=== PATIENT | male | born 1945 | race Caucasian/White ===

== ENCOUNTER 2020-09-24 15:04 | Emergency (ER) | payer OTHER ==
[2020-09-24 15:51] LABS: Absolute Lymphocytes (CBC) 1.4 K/uL (0.7-4.9); Basophils % 0.2 % (0-1.3); Hematocrit 41.4 % (39.6-49.0); Lymphocytes % 18.1 % (15.3-44.8); MPV 8.6 fL (7.6-11.3); RBC Red Blood Cell Count 4.75 M/uL (4.33-5.43)
[2020-09-24 15:52] LABS: Protime INR 1.09
[2020-09-24 16:01] LABS: ALT/SGPT 25 U/L (12-78); AST/SGOT 13 U/L (15-37); Albumin 3.9 g/dL (3.4-5.0); Alkaline Phosphatase 57 U/L (45-117); BUN Blood Urea Nitrogen 24 mg/dL (7-18); Bicarbonate 28 mmol/L (21-32); Bilirubin Direct 0.2 mg/dL (0-0.2); Bilirubin Total 0.8 mg/dL (0.2-1.0); Glucose Level 128 mg/dL (74-106); Magnesium 2.2 mg/dL (1.8-2.4); NT PRO-BNP 134 pg/mL (<450); Potassium 3.4 mmol/L (3.5-5.1); Protein, Total 6.8 g/dL (6.4-8.2); Sodium Level 140 mmol/L (136-145); Troponin (Emerg Dept Use Only) < 0.02 ng/mL (0.0-0.045)
--- NOTE | 2020-09-24 16:02 | RAD REPORT ---
EXAM DESCRIPTION: CT - Head Brain Wo Cont - 09/24/2020 3:39 pm CLINICAL HISTORY: Dizziness;Syncope COMPARISON: <Comparisons> TECHNIQUE: Axial 5 mm thick images of the head were obtained without IV contrast. All CT scans are performed using dose optimization technique as appropriate and may include automated exposure control or mA/KV adjustment according to patient size. FINDINGS: No intracranial hemorrhage, mass, edema or shift of mid-line structures. No acute infarcti on changes seen. No cortical edema or sulcal effacement. Patient has atrophy and chronic ischemic scarlet nges are mild. Ventricles are in proportion to any volume loss. Arterial tree calcifications are pres ent. Mastoid air cells are clear. No acute paranasal sinus findings. No acute bony findings. IMPRESSION: Negative non-contrast CT head examination for acute finding.
--- NOTE | 2020-09-24 16:23 | RAD REPORT ---
EXAM DESCRIPTION: RAD - Chest Single View - 09/24/2020 3:30 pm CLINICAL HISTORY: COUGH COMPARISON: None TECHNIQUE: AP portable chest image was obtained 09/24/2020 3:30 pm . FINDINGS: Lungs are clear. Heart and vasculature are normal. No measurable pleural effusion and no p neumothorax. No acute bony abnormality seen. No acute aortic finding. Sternotomy fusion hardware in p lace. IMPRESSION: No acute cardiopulmonary process.
--- NOTE | 2020-09-24 16:50 | EDPHYS ---
Physician Documentation [facility] Name: Tolu Birmingham Age: 75 yrs Sex: Male : 1945 Arrival Date: 09/24/2020 Time: 15:13 Bed 24 Private MD: ED Physician Levi Carballo HPI: 09/24 16:08 This 75 yrs old Male presents to ER via EMS with complaints of Syncope. scarlet 16:08 The patient has experienced near-syncope, almost passed out. Onset: The scarlet symptoms/episode began/occurred just prior to arrival. Duration: This was a single episode, that lasted 30 second(s). Context: the episode(s) was witnessed, by family. Associated injury: The patient did not suffer any apparent associated injury. Associated signs and symptoms: The patient has no apparent associated signs or symptoms. Current symptoms: Currently, the patient is not experiencing any symptoms. The patient has not experienced similar symptoms in the past. Historical: - Allergies: 15:19 Morphine; ph - PSHx: 15:19 CABG; ph - Immunization history:: Client reports receiving the 2nd dose of the Covid vaccine, Flu vaccine is up to date. - Social history:: Smoking status: Patient denies any tobacco usage or history of. Patient uses alcohol, occasionally. - Family history:: not pertinent. ROS: 16:08 Constitutional: Negative for fever, chills, and weight loss, Eyes: Negative for injury, scarlet pain, redness, and discharge, ENT: Negative for injury, pain, and discharge, Neck: Negative for injury, pain, and swelling, Cardiovascular: Negative for chest pain, palpitations, and edema, Respiratory: Negative for shortness of breath, cough, wheezing, and pleuritic chest pain, Abdomen/GI: Negative for abdominal pain, nausea, vomiting, diarrhea, and constipation, Back: Negative for injury and pain, : Negative for injury, bleeding, discharge, and swelling, MS/Extremity: Negative for injury and deformity, Skin: Negative for injury, rash, and discoloration, Psych: Negative for depression, anxiety, suicide ideation, homicidal ideation, and hallucinations, Allergy/Immunology: Negative for hives, rash, and allergies, Endocrine: Negative for neck swelling, polydipsia, polyuria, polyphagia, and marked weight changes, Hematologic/Lymphatic: Negative for swollen nodes, abnormal bleeding, and unusual bruising. 16:08 Neuro: Positive for syncope, near syncope. Exam: 16:08 Constitutional: This is a well developed, well nourished patient who is awake, alert, scarlet and in no acute distress. Head/Face: Normocephalic, atraumatic. Eyes: Pupils equal round and reactive to light, extra-ocular motions intact. Lids and lashes normal. Conjunctiva and sclera are non-icteric and not injected. Cornea within normal limits. Periorbital areas with no swelling, redness, or edema. ENT: Nares patent. No nasal discharge, no septal abnormalities noted. Tympanic membranes are normal and external auditory canals are clear. Oropharynx with no redness, swelling, or masses, exudates, or evidence of obstruction, uvula midline. Mucous membranes moist. Neck: Trachea midline, no thyromegaly or masses palpated, and no cervical lymphadenopathy. Supple, full range of motion without nuchal rigidity, or vertebral point tenderness. No Meningismus. Chest/axilla: Normal chest wall appearance and motion. Nontender with no deformity. No lesions are appreciated. Cardiovascular: Regular rate and rhythm with a normal S1 and S2. No gallops, murmurs, or rubs. Normal PMI, no JVD. No pulse deficits. Respiratory: Lungs have equal breath sounds bilaterally, clear to auscultation and percussion. No rales, rhonchi or wheezes noted. No increased work of breathing, no retractions or nasal flaring. Abdomen/GI: Soft, non-tender, with normal bowel sounds. No distension or tympany. No guarding or rebound. No evidence of tenderness throughout. Back: No spinal tenderness. No costovertebral tenderness. Full range of motion. Male : Normal genitalia with no discharge or lesions. Skin: Warm, dry with normal turgor. Normal color with no rashes, no lesions, and no evidence of cellulitis. MS/ Extremity: Pulses equal, no cyanosis. Neurovascular intact. Full, normal range of motion. Neuro: Awake and alert, GCS 15, oriented to person, place, time, and situation. Cranial nerves II-XII grossly intact. Motor strength 5/5 in all extremities. Sensory grossly intact. Cerebellar exam normal. Normal gait. Psych: Awake, alert, with orientation to person, place and time. Behavior, mood, and affect are within normal limits. 16:08 Musculoskeletal/extremity: DVT Exam: No signs of deep vein thrombosis. no pain, no swelling, no tenderness, negative Homans' sign noted on exam, no appreciated bluish discoloration, no erythema, no increased warmth. 16:22 ECG was reviewed by the Attending Physician. scarlet Vital Signs: 15:13 BP 123 / 60; Pulse 69; Resp 18; Temp 97.0; Pulse Ox 96% on R/A; Weight 81.65 kg; Height ph 5 ft. 8 in. (172.72 cm); 16:28 Pulse 77; Resp 18; Pulse Ox 97% on R/A; ph 17:27 BP 83 / 62 LA Supine (auto/reg); Pulse 84; Pulse Ox 100% on R/A; jp3 17:29 BP 92 / 80 LA Sitting (auto/reg); Pulse 82; Pulse Ox 100% on R/A; jp3 17:33 BP 125 / 62 LA Standing (auto/reg); Pulse 82; Pulse Ox 100% on R/A; jp3 15:13 Body Mass Index 27.37 (81.65 kg, 172.72 cm) ph NIH Stroke Scale Scores: 16:53 NIHSS Score: 0 scarlet MDM: 15:15 Patient medically screened. scarlet 16:12 Differential Diagnosis: aortic aneurysm, cardiac arrhythmia, GI bleed, idiopathic scarlet syncope, seizure, transient ischemic attack, vasovagal episode, . Data reviewed: vital signs, nurses notes, lab test result(s), EKG. Data interpreted: monitoring and evaluation advisor: rate is 69 beats/min, rhythm is regular, Pulse oximetry: on room air is 96 %. Test interpretation: by ED physician or midlevel provider: ECG, plain radiologic studies. Counseling: I had a detailed discussion with the patient and/or guardian regarding: the historical points, exam findings, and any diagnostic results supporting the discharge/admit diagnosis, lab results, radiology results, the need for outpatient follow up, for definitive care, a batch records clerk, an supervising appraiser, a neurologist. 09/24 15:17 Order name: Basic Metabolic Panel [facility] 09/24 15:17 Order name: CBC with Diff; Complete Time: 16:06 [facility] 09/24 15:17 Order name: LFT's; Complete Time: 16:06 [facility] 09/24 15:17 Order name: Magnesium; Complete Time: 16:06 scarlet 09/24 15:17 Order name: NT PRO-BNP; Complete Time: 16:06 scarlet 09/24 15:17 Order name: PT-INR; Complete Time: 16:06 scarlet 09/24 15:17 Order name: Troponin (emerg Dept Use Only); Complete Time: 16:06 scarlet 09/24 15:17 Order name: XRAY Chest (1 view); Complete Time: 16:48 scarlet 09/24 15:17 Order name: CT Head Brain wo Cont; Complete Time: 16:06 scarlet 09/24 15:17 Order name: Basic Metabolic Panel; Complete Time: 16:06 [facility]MO 09/24 15:58 Order name: Alcohol Level; Complete Time: 16:48 scarlet 09/24 15:17 Order name: EKG; Complete Time: 15:18 scarlet 09/24 15:17 Order name: EKG - Nurse/Tech; Complete Time: 16:24 [facility] 09/24 15:17 Order name: IV Saline Lock; Complete Time: 15:51 [facility] 09/24 15:17 Order name: Labs collected and sent; Complete Time: 15:51 [facility] 09/24 15:17 Order name: O2 Per Protocol; Complete Time: 15:26 scarlet 09/24 15:17 Order name: O2 Sat Monitoring; Complete Time: 15:26 [facility] 09/24 15:58 Order name: PO challenge; Complete Time: 16:48 [facility] 09/24 16:49 Order name: Orthostatics; Complete Time: 17:46 scarlet EC:22 Rate is 64 beats/min. Rhythm is regular. QRS [place] is Normal. [place] interval is normal. QRS scarlet interval is normal. QT interval is prolonged at 470 msec. No Q waves. T waves are Normal. No ST changes noted. Clinical impression: NSR w/ Non-specific ST/T Changes and No evidence of ischemia. Interpreted by me. Reviewed by me. Administered Medications: 16:00 Drug: NS 0.9% 1000 ml Route: IV; Rate: 125 ml/hr; Site: left forearm; ph 18:00 Follow up: Response: No adverse reaction; IV Status: Completed infusion ph 16:48 Drug: NS 0.9% 500 ml Route: IV; Rate: bolus; Site: left forearm; ph 18:01 Follow up: Response: No adverse reaction; IV Status: Completed infusion; IV Intake: ph 500ml 16:48 Drug: Potassium Effervescent Tablet 25 mEq Route: PO; ph 18:01 Follow up: Response: No adverse reaction ph 17:30 Drug: foLIC Acid 1 mg Route: IVPB; Site: left forearm; ph 18:01 Follow up: Response: No adverse reaction; IV Status: Completed infusion ph 17:30 Drug: Thiamine 100 mg Route: IV; Rate: per protocol; Site: left forearm; ph 18:01 Follow up: Response: No adverse reaction; IV Status: Completed infusion ph 17:30 Drug: Aspirin 162 mg Route: PO; ph 18:01 Follow up: Response: No adverse reaction ph Disposition: 09/24/20 16:50 Discharged to Home. Impression: Syncope and collapse - near, Volume depletion, Hypokalemia. - Condition is Stable. - Discharge Instructions: Potassium Content of Foods, Near-Syncope, Syncope, Weakness, Near-Syncope, Egby-dj-Habd, Syncope, Powf-aj-Lway, Weakness, Yuao-ow-Bkta, Hypokalemia, Vasovagal Syncope, Adult. - Medication Reconciliation Form, Thank You Letter, Antibiotic Education, Prescription Opioid Use form. - Follow up: Private Physician; When: 2 - 3 days; Reason: Recheck today's complaints, Continuance of care, Re-evaluation by your physician. - Problem is new. - Symptoms have improved. NIH Stroke Scale - NIH Stroke Score Date: 09/24/2020 Time: 16:53 Total Score = 0 1a. Level of Consciousness (LOC) - 0(Alert) 1b. Level of Consciousness (LOC) (Year \T\ Age) - 0(Both) 1c. LOC Commands (Open \T\ Closes Eyes/Data Management Consultant) - 0(Both) 2. Best Gaze (Lateral Gaze Paresis) - 0(Normal) 3. Visual Field Loss - 0(No visual loss) 4. Facial Palsy - 0(Normal) 5a. Left Arm: Motor (10-second hold) - 0(No drift) 5b. Right Arm: Motor (10-second hold) - 0(No drift) 6a. Left Leg: Motor (5-second hold - always test supine) - 0(No drift) 6b. Right Leg: Motor (5-second hold - always test supine) - 0(No drift) 7. Limb Ataxia (finger/nose \T\ heel/lynch - test with eyes open) - 0(Absent) 8. Sensory Loss (pinprick arms/legs/face) - 0(Normal) 9. Best Language: Aphasia (description/naming/reading) - 0(No aphasia) 10. Dysarthria (speech clarity - read or repeat words) - 0(Normal) 11. Extinction and Inattention (visual/tactile/auditory/spatial/personal) - 0(No abnormality) Initials: [facility] Signatures: Dispatcher [employer] EDLevi Hardwick MD MD cha Hall, Patricia RN RN ph Corrections: (The following items were deleted from the chart) 16:51 16:50 09/24/2020 16:50 Discharged to Home. Impression: Syncope and collapse - scarlet near. Condition is Stable. Discharge Instructions: Near-Syncope, Syncope, Weakness, Near-Syncope, Gwiq-mu-Wfue, Syncope, Vkkx-dk-Vxhk, Weakness, Cgvj-yh-Zvde, Vasovagal Syncope, Adult. Forms are Medication Reconciliation Form, Thank You Letter, Antibiotic Education, Prescription Opioid Use. Follow up: Private Physician; When: 2 - 3 days; Reason: Recheck today's complaints, Continuance of care, Re-evaluation by your physician. Problem is new. Symptoms have improved. [facility] 18:06 16:51 09/24/2020 16:50 Discharged to Home. Impression: Syncope and collapse - ph near; Volume depletion; Hypokalemia. Condition is Stable. Discharge Instructions: Near-Syncope, Syncope, Weakness, Near-Syncope, Ycfh-uf-Lbpn, Syncope, Mceg-wa-Yfgu, Weakness, Cdhu-bs-Bmsl, Vasovagal Syncope, Adult. Forms are Medication Reconciliation Form, Thank You Letter, Antibiotic Education, Prescription Opioid Use. Follow up: Private Physician; When: 2 - 3 days; Reason: Recheck today's complaints, Continuance of care, Re-evaluation by your physician. Problem is new. Symptoms have improved. scarlet
--- NOTE | 2020-09-24 16:50 | ER ---
Nurse's Notes [facility] Name: Tolu Birmingham Age: 75 yrs Sex: Male : 1945 Arrival Date: 09/24/2020 Time: 15:13 Bed 24 Private MD: Diagnosis: Syncope and collapse-near;Volume depletion;Hypokalemia Presentation: 09/24 15:13 Chief complaint: EMS states: Pt in from out of town visiting friends, had a witnessed ph syncopal episode, upon EMS arrival pt was awake but lethargic, A\T\O x 0, initial BP 80/40, Approx 400 mL NS given and systolic improved to 110, pt A\T\O x 4 upon arrival to ED, denies recent illness or chest pain, hx of CABG, BGL 125. Coronavirus screen: Client denies travel out of the [place] in the last 14 days. At this time, the client does not indicate any symptoms associated with coronavirus-19. Ebola Screen: No symptoms or risks identified at this time. Initial Sepsis Screen: Does the patient meet any 2 criteria? No. Patient's initial sepsis screen is negative. Does the patient have a suspected source of infection? No. Patient's initial sepsis screen is negative. Risk Assessment: Do you want to hurt yourself or someone else? Patient reports no desire to harm self or others. Onset of symptoms was September 24, 2020. 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 - Social history:: Smoking status: Patient denies any tobacco usage or history of. Patient uses alcohol, occasionally. - Family history:: not pertinent. Screenin:19 Abuse screen: Denies threats or abuse. Denies injuries from another. Nutritional ph screening: No deficits noted. Tuberculosis screening: No symptoms or risk factors identified. Fall Risk None identified. Assessment: 15:30 General: Appears in no apparent distress. comfortable, well groomed, Behavior is calm, ph cooperative, appropriate for age, Denies fever, feeling ill. Pain: Denies pain. Neuro: Level of Consciousness is awake, alert, obeys commands, Oriented to person, place, time, situation. Neuro: Reports a syncopal episode. Cardiovascular: Denies chest pain, lightheadedness, nausea, palpitations, shortness of breath, Capillary refill < 3 seconds in bilateral fingers Patient's skin is warm and dry. Rhythm is regular. Respiratory: Airway is patent Respiratory effort is even, unlabored. GI: Patient currently denies abdominal pain, nausea, vomiting. Derm: Skin is intact, Skin is pink, warm \T\ dry. Musculoskeletal: Circulation, motion, and sensation intact. Range of motion: intact in all extremities. Vital Signs: 15:13 BP 123 / 60; Pulse 69; Resp 18; Temp 97.0; Pulse Ox 96% on R/A; Weight 81.65 kg; Height ph 5 ft. 8 in. (172.72 cm); 16:28 Pulse 77; Resp 18; Pulse Ox 97% on R/A; ph 17:27 BP 83 / 62 LA Supine (auto/reg); Pulse 84; Pulse Ox 100% on R/A; jp3 17:29 BP 92 / 80 LA Sitting (auto/reg); Pulse 82; Pulse Ox 100% on R/A; jp3 17:33 BP 125 / 62 LA Standing (auto/reg); Pulse 82; Pulse Ox 100% on R/A; jp3 15:13 Body Mass Index 27.37 (81.65 kg, 172.72 cm) ph NIH Stroke Scale Scores: 16:53 NIHSS Score: 0 [facility] ED Course: 15:13 Patient arrived in ED. ph 15:15 Levi Carballo MD is Attending Physician. scarlet 15:18 Triage completed. ph 15:19 Arm band placed on Patient placed in an exam room, on a stretcher. ph 15:20 Patient has correct armband on for positive identification. Placed in gown. Bed in low ph position. Call light in reach. Side rails up X2. personnel monitor on. Pulse ox on. NIBP on. Door closed. Noise minimized. Warm blanket given. 15:26 Lulu Castillo, GELY is Primary Nurse. ph 15:30 XRAY Chest (1 view) In Process Unspecified. EDMS 15:39 CT Head Brain wo Cont In Process Unspecified. EDMS 15:51 Initial lab(s) drawn, by me, sent to lab. X-ray(s) taken. Maintain EMS IV. Dressing jp3 intact. Good blood return noted. Site clean \T\ dry. Gauge \T\ site: 18-gauge Left Wrist. Patient maintains SpO2 saturation greater than 95% on room air. 18:02 No provider procedures requiring assistance completed. IV discontinued, intact, ph bleeding controlled, No redness/swelling at site. Pressure dressing applied. Administered Medications: 16:00 Drug: NS 0.9% 1000 ml Route: IV; Rate: 125 ml/hr; Site: left forearm; ph 18:00 Follow up: Response: No adverse reaction; IV Status: Completed infusion ph 16:48 Drug: NS 0.9% 500 ml Route: IV; Rate: bolus; Site: left forearm; ph 18:01 Follow up: Response: No adverse reaction; IV Status: Completed infusion; IV Intake: ph 500ml 16:48 Drug: Potassium Effervescent Tablet 25 mEq Route: PO; ph 18:01 Follow up: Response: No adverse reaction ph 17:30 Drug: foLIC Acid 1 mg Route: IVPB; Site: left forearm; ph 18:01 Follow up: Response: No adverse reaction; IV Status: Completed infusion ph 17:30 Drug: Thiamine 100 mg Route: IV; Rate: per protocol; Site: left forearm; ph 18:01 Follow up: Response: No adverse reaction; IV Status: Completed infusion ph 17:30 Drug: Aspirin 162 mg Route: PO; ph 18:01 Follow up: Response: No adverse reaction ph Intake: 18:01 IV: 500ml; Total: 500ml. ph Outcome: 16:50 Discharge ordered by . scarlet 18:05 Discharged to home ambulatory. ph 18:05 Condition: good 18:05 Discharge instructions given to patient, Instructed on discharge instructions, follow up and referral plans. Demonstrated understanding of instructions, follow-up care. 18:06 Patient left the ED. ph NIH Stroke Scale - NIH Stroke Score Date: 09/24/2020 Time: 16:53 Total Score = 0 1a. Level of Consciousness (LOC) - 0(Alert) 1b. Level of Consciousness (LOC) (Year \T\ Age) - 0(Both) 1c. LOC Commands (Open \T\ Closes Eyes/Legal Administrative Secretary) - 0(Both) 2. Best Gaze (Lateral Gaze Paresis) - 0(Normal) 3. Visual Field Loss - 0(No visual loss) 4. Facial Palsy - 0(Normal) 5a. Left Arm: Motor (10-second hold) - 0(No drift) 5b. Right Arm: Motor (10-second hold) - 0(No drift) 6a. Left Leg: Motor (5-second hold - always test supine) - 0(No drift) 6b. Right Leg: Motor (5-second hold - always test supine) - 0(No drift) 7. Limb Ataxia (finger/nose \T\ heel/lynch - test with eyes open) - 0(Absent) 8. Sensory Loss (pinprick arms/legs/face) - 0(Normal) 9. Best Language: Aphasia (description/naming/reading) - 0(No aphasia) 10. Dysarthria (speech clarity - read or repeat words) - 0(Normal) 11. Extinction and Inattention (visual/tactile/auditory/spatial/personal) - 0(No abnormality) Initials: scarlet Signatures: Dispatcher [employer] EDLevi Hardwick MD MD cha Hall, Patricia, RN RN ph Papo Tinajero jp3 Corrections: (The following items were deleted from the chart) 18:02 18:02 Neuro: Reports ph ph
[2020-09-24] MEDS ORDERED: POTASSIUM 25 MEQ EFFERV TAB ONE (16:58)
[2020-09-24] MEDS ORDERED: NA CHLORIDE 0.9% 500 ML ONE (16:58)
[2020-09-24] MEDS ORDERED: THIAMINE 200 MG/2 ML INJ ONE (17:40)
[2020-09-24] MEDS ORDERED: ASPIRIN 81 MG CHEWABLE TABLET ONE (17:41)
[2020-09-24] MEDS ORDERED: FOLIC ACID 5 MG/ML VIAL ONE (17:42)
[2020-09-25 14:20] VITALS: TEMP 97
[2020-09-25 14:32] VITALS: O2SAT 100
[2020-09-25 14:34] VITALS: BP 125/62
== END 2020-09-24 18:06 | disposition home or self-care (01) ==
LOC: ER 15:04
DX: E86.9 Volume depletion, unspecified (principal); E87.6 Hypokalemia; Z88.5 Allergy status to narcotic agent; Z95.1 Presence of aortocoronary bypass graft
CPT/HCPCS: 93005; 85025; 80048; 36415; 80320; 83735; 85610; 80076; 84484; 83880; 70450; 71045; J3411; J7040; 96361; 96365; 96368; 99285

== ENCOUNTER 2021-05-30 18:39 | Observation (INO) | payer OTHER ==
--- OUTSIDE RECORDS SUMMARY | 2021-05-30 19:17 | XMS REPORT | Continuity of Care Document ---
:1945 Author Organization [facility] t Address [address] [place] [address] Care Team Providers Name Role Phone DARLINE BRASHER Attending Clinician Unavailable System MD, Not In Attending Clinician Unavailable Problems This patient has no known problems. Allergies, Adverse Reactions, Alerts This patient has no known allergies or adverse reactions. Social History Social Habit Start Date Stop Date Quantity Comments Source Sex Assigned [birth year] [facility] 00:00:00 00:00:00 Smoking Status Start Date Stop Date Source Tobacco smoking consumption unknown [facility] Medications This patient has no known medications. Procedures This patient has no known procedures. Encounters Start End Encounter Admission Attending Care Care Encounter Source Date/Time Date/Time Type Type Clinicians Facility Department ID 2020-11-20 Outpatient PATITO BRASHER [facility] [id number] [place] 01:04:35 Health 2020-10-21 2020-10-21 EXT [facility] OP System, EXT [facility] [id number] [place] 00:00:00 00:00:00 Provider LOCATION [id number] Health Not In [id number] 2020-10-20 2020-10-20 Inpatient U [facility] [address] [facility] 14:58:00 05:54:00 Results This patient has no known results.
[2021-05-30 19:20] LABS: Basophils % 0.3 % (0-1.3); Hematocrit 43.5 % (39.6-49.0); Lymphocytes % 39.9 % (15.3-44.8); RBC Red Blood Cell Count 5.04 M/uL (4.33-5.43)
[2021-05-30 19:27] LABS: Protime INR 1.07
[2021-05-30 19:41] LABS: ALT/SGPT 31 U/L (12-78); AST/SGOT 20 U/L (15-37); Albumin 3.7 g/dL (3.4-5.0); Alkaline Phosphatase 61 U/L (45-117); BUN Blood Urea Nitrogen 26 mg/dL (7-18); Bicarbonate 27 mmol/L (21-32); Bilirubin Direct < 0.1 mg/dL (0-0.2); Bilirubin Total 0.4 mg/dL (0.2-1.0); Glucose Level 122 mg/dL (74-106); Magnesium 2.3 mg/dL (1.8-2.4); NT PRO-BNP 87 pg/mL (<450); Potassium 3.4 mmol/L (3.5-5.1); Protein, Total 6.7 g/dL (6.4-8.2); Sodium Level 142 mmol/L (136-145); Troponin (Emerg Dept Use Only) < 0.02 ng/mL (0.0-0.045)
--- NOTE | 2021-05-30 19:55 | RAD REPORT ---
EXAM DESCRIPTION: RAD - Chest Single View - 05/30/2021 7:47 pm CLINICAL HISTORY: CHEST PAIN COMPARISON: September 24 TECHNIQUE: AP portable chest image was obtained 05/30/2021 7:47 pm . FINDINGS: Lungs are clear. Interstitial pattern matches comparison. Heart and vasculature are normal . Postsurgical changes in sternum. Since prior study there has fusion at the cervicothoracic junction No measurable pleural effusion and no pneumothorax. No acute bony abnormality seen. No acute aortic findings suspected. IMPRESSION: No acute cardiopulmonary process.
[2021-05-30] MEDS ORDERED: ONDANSETRON 4 MG/2 ML VIAL ONE (21:00)
--- NOTE | 2021-05-30 21:19 | RAD REPORT ---
EXAM DESCRIPTION: CT - [id number] - 05/30/2021 8:50 pm CLINICAL HISTORY: fall COMPARISON: No comparisons TECHNIQUE: Axial 5 mm thick images of the head were obtained. Axial 2 mm thick images of the cervic al spine were obtained with sagittal and coronal reconstruction images generated and reviewed. All CT scans are performed using dose optimization technique as appropriate and may include automated exposure control or mA/KV adjustment according to patient size. FINDINGS: No intracranial hemorrhage, mass, edema or acute intracranial finding. No suspicion for ac kaci infarction. No extra-axial fluid collections. No cortical edema or sulcal effacement. Mild atroph y and mild chronic ischemic changes present. Ventricles are in proportion Mastoid air cells and paran ddiier sinuses are clear. No globe or orbit abnormality seen. Very extensive cervical spine fusion changes are present involving the vertebral bodies of C3 -C6. Po sterior fusion hardware is present from C2-T2. No fracture of the fusion hardware. No metallic hardwa re encroachment into the central canal. An acute fracture is not identified. C2-3 disc space is prese rved. No fracture or acute bony abnormality. Central canal detail is fully obscured due to metal spr ay artifact No paraspinal mass or hematoma. IMPRESSION: Negative CT head examination for acute or significant finding. Patient has mild atrophy and chronic ischemic change. Extensive cervical fusion changes spanning C3-T2. No acute findings identified. Central canal is ful ly obscured due to the fusion hardware.
--- NOTE | 2021-05-30 21:21 | RAD REPORT ---
EXAM DESCRIPTION: CT - Chest For Pe Angio - 05/30/2021 8:50 pm CLINICAL HISTORY: syncope COMPARISON: Chest Single View dated 05/30/2021 TECHNIQUE: Dynamically enhanced 3 mm thick images of the chest were obtained during administration o f approximately 150mL Isovue 370 IV contrast. Coronal and oblique MIP reconstruction images were gene rated and reviewed. Exam utilizes a protocol to evaluate the pulmonary arterial tree. All CT scans are performed using dose optimization technique as appropriate and may include automated exposure control or mA/KV adjustment according to patient size. FINDINGS: No pulmonary emboli are identified. The aorta as imaged shows no acute or suspicious finding. No pericardial thickening or effusion. No infiltrate or mass in the lung parenchyma. No pleural effusion or pleural thickening. No mediastinal or hilar suspicious masses. No chest wall masses or abnormal axillary lymphadenopathy. No acute bone finding. Upper thoracic fusion changes are present with sternotomy hardware in place. IMPRESSION: No pulmonary emboli identified. No other significant or suspicious findings.
--- NOTE | 2021-05-30 22:04 | EDPHYS ---
Physician Documentation [facility] Name: Tolu Birmingham Age: 75 yrs Sex: Male : 1945 Arrival Date: 05/30/2021 Time: 18:39 Bed 8 Private MD: ED Physician Levi Carballo HPI: 05/30 18:58 This 75 yrs old Male presents to ER via EMS with complaints of Syncope, Blood Pressure jmm Problem. 18:58 The patient has experienced syncope. Onset: The symptoms/episode began/occurred jmm acutely, just prior to arrival. Associated injury: The patient did not suffer any apparent associated injury. The patient has experienced a previous episode. This is a 75-year-old male with history of coronary artery disease, proprioceptive disorder, vertigo that presents emerged department with an episode of syncope or near syncope that developed after the patient was at a friend's house. While standing the states that he had a blank stare patient does not recall this. Patient also had an episode of shortness of breath which occurred upon initial arrival into the ED. Patient denies chest pain. Historical: - Allergies: 18:59 Morphine; iw - Home Meds: 18:59 gabapentin oral [Active]; Meclizine Oral [Active]; pravastatin oral [Active]; aspirin iw 81 mg Oral TbEC 1 tab once daily [Active]; - PMHx: 22:34 vertigo; df1 - PSHx: 18:59 CABG; iw 22:34 knee replacement left; neck surgeries x 3; df1 - Immunization history:: Client reports receiving the 2nd dose of the Covid vaccine. - Social history:: Smoking status: Patient denies any tobacco usage or history of. Patient uses alcohol, only on a social basis. ROS: 18:58 Constitutional: Negative for fever, chills, and weight loss, Cardiovascular: Negative jmm for chest pain, palpitations, and edema. 18:58 Respiratory: Positive for shortness of breath. 18:58 Neuro: Positive for syncope. 18:58 All other systems are negative. Exam: 18:58 Constitutional: This is a well developed, well nourished patient who is awake, alert, jmm and in no acute distress. Head/Face: atraumatic. Eyes: EOMI, no conjunctival erythema appreciated ENT: Moist Mucus Membranes Neck: Trachea midline, Supple Chest/axilla: Normal chest wall appearance and motion. Cardiovascular: Regular rate and rhythm. No edema appreciated Respiratory: Normal respirations, no respiratory distress appreciated Abdomen/GI: Non distended, soft Back: Normal ROM Skin: General appearance color normal MS/ Extremity: Moves all extremities, no obvious deformities appreciated, no edema noted to the lower extremities Neuro: Awake and alert, normal gait Psych: Behavior is normal, Mood is normal, Patient is cooperative and pleasant Vital Signs: 18:58 BP 118 / 60; Pulse 96; Resp 18 S; Temp 97.5; Pulse Ox 92% on R/A; Weight 81.65 kg; iw Height 5 ft. 7 in. (170.18 cm); 20:00 BP 140 / 78; Pulse 87; Resp 18; Pulse Ox 94% on 5 lpm NC; Pain 0/10; df1 20:30 BP 132 / 75; Pulse 85; Resp 18; Pulse Ox 98% 5 lpm ; Pain 0/10; df1 21:07 BP 136 / 84; Pulse 88; Resp 18; Pulse Ox 100% on 3 lpm NC; Pain 0/10; df1 22:00 BP 125 / 70; Pulse 90; Resp 18; Pulse Ox 100% on 2 lpm NC; Pain 0/10; df1 18:58 Body Mass Index 28.19 (81.65 kg, 170.18 cm) iw MDM: 19:16 Patient medically screened. scarlet 22:02 Data reviewed: vital signs, nurses notes. Counseling: I had a detailed discussion with catarino the patient and/or guardian regarding: the historical points, exam findings, and any diagnostic results supporting the discharge/admit diagnosis, lab results, radiology results, the need for further work-up and treatment in the hospital. ED course: I discussed the patient with Al Tirado whom accepted the patient to Dr. Adonis zavala. 05/30 18:58 Order name: Basic Metabolic Panel 05/30 18:58 Order name: CBC with Diff 05/30 18:58 Order name: LFT's; Complete Time: 19:46 05/30 18:58 Order name: Magnesium; Complete Time: 19:46 05/30 18:58 Order name: NT PRO-BNP; Complete Time: 19:46 05/30 18:58 Order name: PT-INR; Complete Time: 19:35 05/30 18:58 Order name: Troponin (emerg Dept Use Only); Complete Time: 19:46 05/30 18:58 Order name: XRAY Chest (1 view); Complete Time: 20:02 05/30 18:58 Order name: EKG; Complete Time: 18:59 05/30 18:59 Order name: Basic Metabolic Panel; Complete Time: 19:46 [facility] 05/30 18:59 Order name: CBC with Automated Diff; Complete Time: 19:35 [facility] 05/30 19:26 Order name: CT Head C Spine; Complete Time: 21:20 [facility] 05/30 19:26 Order name: CT Chest For PE Angio; Complete Time: 21:23 [facility] 05/30 20:03 Order name: SARS-COV-2 RT PCR (Document "Date of Onset" if Symptomatic); Complete Time: [facility] 21:20 05/30 18:58 Order name: Cardiac monitoring; Complete Time: 18:58 05/30 18:58 Order name: EKG - Nurse/Tech; Complete Time: 18:58 05/30 18:58 Order name: IV Saline Lock; Complete Time: 19:11 05/30 18:58 Order name: Labs collected and sent; Complete Time: 19:11 05/30 18:58 Order name: O2 Per Protocol; Complete Time: 18:59 05/30 18:58 Order name: O2 Sat Monitoring; Complete Time: 18:59 05/30 22:09 Order name: CONS Physician Consult EDTX Administered Medications: No medications were administered Disposition: 05/31 07:20 Co-signature as Attending Physician, Levi Carballo MD I agree with the assessment and scarlet plan of care. Disposition Summary: 05/30/21 22:04 Hospitalization Ordered Hospitalization Status: Observation [facility] Provider: Natalya Yang Location: Telemetry/MedSurg (observation) jmm Condition: Stable jmm Problem: new jmm Symptoms: have improved jmm Bed/Room Type: Standard [facility] Room Assignment: 223(05/30/21 22:12) cg Diagnosis - Syncope jmm - Hypoxia jmm Forms: - Medication Reconciliation Form jmm - SBAR form [facility] Signatures: Dispatcher [employer] EDLevi Hardwick MD MD cha Mickail, Joel, PA PA [facility] Den, Ashleigh, GELY RN Karlee Martinez RN RN cg Maritza Matamoros df1 Corrections: (The following items were deleted from the chart) 05/30 19:12 18:59 Chest Single View+RAD.RAD.[email or web address] ordered. EDMS EDMS 22:12 22:04 catarino gonzalez
--- NOTE | 2021-05-30 22:04 | ER ---
Nurse's Notes [facility] Name: Tlou Birmingham Age: 75 yrs Sex: Male : 1945 Arrival Date: 05/30/2021 Time: 18:39 Bed 8 Private MD: Diagnosis: Syncope;Hypoxia Presentation: 05/30 18:51 Chief complaint: EMS states: pt was at a friend's house and was talking to his , he iw said he didn't feel good and asked for some water, then he complained of tightness in his chest, he got flush and stopped responding, was staring off and not making eye contact, pt never actually passed out. Episode lasted about 1-2 min. Pt states he still feels a little tightness in his chest , he just doesn't feel good. EMS reports pt BP was low 90's systolic on scene, SpO2 at 89%, placed on NC and given fluids. Ebola Screen: Patient negative for fever greater than or equal to 101.5 degrees Fahrenheit, and additional compatible Ebola Virus Disease symptoms Patient denies exposure to infectious person. Patient denies travel to an Ebola-affected area in the 21 days before illness onset. No symptoms or risks identified at this time. Initial Sepsis Screen: Does the patient meet any 2 criteria? No. Patient's initial sepsis screen is negative. Does the patient have a suspected source of infection? No. Patient's initial sepsis screen is negative. Risk Assessment: Do you want to hurt yourself or someone else? Patient reports no desire to harm self or others. Onset of symptoms was May 30, 2021. 18:51 Method Of Arrival: EMS: [facility] iw 18:51 Acuity: JAYDEN 2 iw 18:58 Coronavirus screen: At this time, the client does not indicate any symptoms associated iw with coronavirus-19. Triage Assessment: 21:08 General: Appears uncomfortable, Behavior is calm, cooperative. Pain: Denies pain. EENT: df1 No deficits noted. Neuro: Reports. Cardiovascular: No deficits noted. Respiratory: Airway is patent Trachea midline Respiratory effort is even, unlabored, Respiratory pattern is regular, symmetrical, Breath sounds are clear bilaterally. GI: Reports nausea. : No deficits noted. Derm: No deficits noted. Musculoskeletal: No deficits noted. Historical: - Allergies: 18:59 Morphine; iw - Home Meds: 18:59 gabapentin oral [Active]; Meclizine Oral [Active]; pravastatin oral [Active]; aspirin iw 81 mg Oral TbEC 1 tab once daily [Active]; - PMHx: 22:34 vertigo; df1 - PSHx: 18:59 CABG; iw 22:34 knee replacement left; neck surgeries x 3; df1 - Immunization history:: Client reports receiving the 2nd dose of the Covid vaccine. - Social history:: Smoking status: Patient denies any tobacco usage or history of. Patient uses alcohol, only on a social basis. Screenin:10 Abuse screen: Denies threats or abuse. Nutritional screening: No deficits noted. ap3 Tuberculosis screening: No symptoms or risk factors identified. Fall Risk No fall in past 12 months (0 pts). No secondary diagnosis (0 pts). IV access (20 points). Ambulatory Aid- None/Bed Rest/Nurse Assist (0 pts). Gait- Weak (10 pts.). Mental Status- Oriented to own ability (0 pts). Total Gunn Fall Scale indicates Low Risk Score (25-44 pts). Fall prevention measures have been instituted. Side Rails Up X 2 Frequent Obs/Assesments occuring Family Present and informed to notify staff if they need to leave bedside As available Patient and Family Educated on Fall Prevention Program and strategies. Assessment: 19:05 General: Appears uncomfortable, Behavior is calm. Pain: Complains of pain in chest ap3 Quality of pain is described as pressure. Neuro: Level of Consciousness is awake, alert, obeys commands, Oriented to person, place, time, situation, Speech is normal, Facial symmetry appears normal. Cardiovascular: Reports chest pain, lightheadedness, syncope. Cardiovascular: Rhythm is sinus rhythm with PACs. Respiratory: Airway is patent Respiratory effort is even, unlabored, Denies shortness of breath. Derm: Skin is flushed. 22:33 GI: Patient currently denies nausea. : No deficits noted. EENT: No deficits noted. df1 Musculoskeletal: No deficits noted. Vital Signs: 18:58 BP 118 / 60; Pulse 96; Resp 18 S; Temp 97.5; Pulse Ox 92% on R/A; Weight 81.65 kg; iw Height 5 ft. 7 in. (170.18 cm); 20:00 BP 140 / 78; Pulse 87; Resp 18; Pulse Ox 94% on 5 lpm NC; Pain 0/10; df1 20:30 BP 132 / 75; Pulse 85; Resp 18; Pulse Ox 98% 5 lpm ; Pain 0/10; df1 21:07 BP 136 / 84; Pulse 88; Resp 18; Pulse Ox 100% on 3 lpm NC; Pain 0/10; df1 22:00 BP 125 / 70; Pulse 90; Resp 18; Pulse Ox 100% on 2 lpm NC; Pain 0/10; df1 18:58 Body Mass Index 28.19 (81.65 kg, 170.18 cm) iw ED Course: 18:39 Patient arrived in ED. am2 18:43 Jessica Peterson, RN is Primary Nurse. ap3 18:48 Peña Foster PA is PHCP. jmm 18:48 Naveen Cruz MD is Attending Physician. [facility] 18:57 Triage completed. iw 18:58 Arm band placed on. iw 19:10 Patient has correct armband on for positive identification. Bed in low position. Call ap3 light in reach. Side rails up X2. Adult w/ patient. groundwater monitoring technician on. Pulse ox on. NIBP on. Door closed. Noise minimized. 19:15 Troponin (emerg Dept Use Only) Sent. jl7 19:15 PT-INR Sent. jl7 19:15 NT PRO-BNP Sent. jl7 19:15 Magnesium Sent. jl7 19:15 LFT's Sent. jl7 19:15 CBC with Diff Sent. jl7 19:15 Basic Metabolic Panel Sent. jl7 19:15 Basic Metabolic Panel Sent. jl7 19:15 CBC with Automated Diff Sent. jl7 19:16 Attending Physician role handed off by Naveen Cruz MD scarlet 19:16 Levi Carballo MD is Attending Physician. scarlet 19:46 XRAY Chest (1 view) In Process Unspecified. EDMS 20:14 Inserted saline lock: 20 gauge in right antecubital area, using aseptic technique. dh4 20:31 SARS-COV-2 RT PCR (Document "Date of Onset" if Symptomatic) Sent. df1 20:31 No provider procedures requiring assistance completed. df1 20:50 CT Head C Spine In Process Unspecified. EDMS 20:50 CT Chest For PE Angio In Process Unspecified. EDMS 22:03 Natalya Yang MD is Hospitalizing Provider. [facility] 22:56 Patient admitted, IV remains in place. df1 Administered Medications: No medications were administered Outcome: 22:04 Decision to Hospitalize by Provider. [facility] 22:56 Admitted to Tele accompanied by tech. df1 22:56 Condition: stable 22:56 Instructed on the need for admit. 22:56 Patient left the ED. df1 Signatures: Dispatcher [employer] EDUT Levi Carballo MD MD cha Mickail, Joel, PA PA [facility] Ashleigh Crenshaw, RN RN iw Matthew Avery RN RN jl7 Jessica Mckeon Amanda, RN RN aileen3 Tolu Gandhi 4 Maritza Matamoros df1
[2021-05-30] MEDS ORDERED: ALBUTEROL 2.5 MG/3 ML NEB SOL NEB PRN (22:49)
[2021-05-30] MEDS ORDERED: POTASSIUM 25 MEQ EFFERV TAB PO ONE (22:49)
[2021-05-30] MEDS ORDERED: ACETAMINOPHEN 500 MG TAB PO PRN (22:49)
[2021-05-30] MEDS ORDERED: HYDRALAZINE HCL 20 MG/ML VIAL IV PRN (22:49)
[2021-05-30 23:34] VITALS: BMI 28.1
[2021-05-30] MEDS: NA CHLORIDE 0.9% 1,000 ML IV SCH (23:43)
[2021-05-30] MEDS ORDERED: ZOLPIDEM TARTRATE 5 MG TABLET PO PRN (23:48)
[2021-05-30] MEDS ORDERED: MELATONIN 5 MG TABLET PO PRN (23:48)
--- NOTE | 2021-05-31 00:23 | P.HP ---
Certification for Inpatient Patient admitted to: Observation With expected LOS: <2 Midnights Patient will require the following post-hospital care: None Practitioner: I am a practitioner with admitting privileges, knowledge of patient current condition, hospital course, and medical plan of care. 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 He was on his way to [place] and stopped to have a drink with a friend. He suddenly became flushed, his eyes glazed over and he started gasping for breath. He describes a sick feeling came over in. His chest became tight and he felt very thirsty. This episode lasted for 3 minutes. EMS noted he was hypoxic and hypotensive. He was initially requiring 6 liters NC upon arrival. A similar episode happened one year ago but was more severe. That episode lasted for 15 minutes and he became very diaphoretic and hypotensive. He had a full workup done by cardiology, neurology and ENT at that time with no findings. 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 He takes meclizine and gabapentin for symptomatic relief. He says he has had ongoing vertigo, propioception and gait issues. He says he has to walk with in tention but by lunch time he feels very weak. At one point, it was thought he had myasthenia gravis but this was ruled out. Denies dizziness. K 3.4, BUN 26, GFR 69, Glu 122. - Past Medical/Surgical History Has patient received pneumonia vaccine in the past: Yes -: CAD -: vertigo, idiopathic neurological events -: foot drop -: CABG x 4 -: 3 neck surgeries -: L knee replacement - Family History Family History: Reviewed- Non-Contributory - Social History Smoking Status: Never smoker Alcohol use: Yes CD- Drugs: No Caffeine use: Yes Place of Residence: Home <Al Tirado - Last Filed: 05/31/21 00:07> Date of Service: 05/30/21 <Natalya Yang - Last Filed: 06/03/21 20:02> Allergies morphine Allergy (Verified 05/30/21 22:47) Hives/Rash Home Medications: Aspirin [Aspirin EC 325 MG] 325 mg PO DAILY #30 tablet. 05/31/21 Rosuvastatin [Crestor] 10 mg PO BEDTIME #30 tab 05/31/21 Review of Systems 10-point ROS is otherwise unremarkable General: Sweats, Malaise, As per HPI Eyes: Unremarkable ENT: Unremarkable Respiratory: Shortness of Breath, As per HPI Cardiovascular: Unremarkable Gastrointestinal: Unremarkable Genitourinary: Unremarkable Musculoskeletal: Unremarkable Integumentary: Unremarkable Neurological: Confusion, As per HPI <Al Tirado - Last Filed: 05/31/21 00:07> Physical Examination - Vital Signs Blood Pressure: 140/78 Pulse: 87 Respirations: 18 - Physical Exam General: Alert, In no apparent distress HEENT: Atraumatic, PERRLA, Mucous membr. moist/pink, EOMI, Sclerae nonicteric Neck: Supple, 2+ carotid pulse no bruit, No LAD, Without JVD or thyroid abnormality Respiratory: Clear to auscultation bilaterally, Normal air movement Cardiovascular: Regular rate/rhythm, Normal S1 S2 Gastrointestinal: Normal bowel sounds, No tenderness Musculoskeletal: No tenderness Integumentary: No rashes Neurological: Normal gait, Normal speech, Normal strength at 5/5 x4 extr, Normal tone, Normal affect Lymphatics: No axilla or inguinal lymphadenopathy - Studies Laboratory Data (last 24 hrs) 05/30/21 19:09: PT 12.3, INR 1.07 05/30/21 19:09: WBC 5.00, Hgb 14.4, Hct 43.5, Plt Count 243 05/30/21 19:09: Sodium 142, Potassium 3.4 L, BUN 26 H, Creatinine 1.04, Glucose 122 H, Magnesium 2.3, Total Bilirubin 0.4, AST 20, ALT 31, Alkaline Phosphatase 61 <Al Tirado - Last Filed: 05/31/21 00:07> Assessment and Plan - Problems (Diagnosis) (1) Syncope Status: Acute Qualifiers: Syncope type: unspecified Qualified Code(s): R55 - Syncope and collapse (2) Vertigo Status: Acute (3) CAD (coronary artery disease) Status: Chronic Qualifiers: Coronary Disease-Associated Artery/Lesion type: bypass graft [place] vs. transplanted heart: [place] heart Associated angina: without angina Qualified Code(s): I25.810 - Atherosclerosis of coronary artery bypass graft(s) without angina pectoris - Plan cardiology consulted, neurology consulted, PT consulted on tele, repeat EKG, orthostatic VS oxygen as needed continue IV fluids monitor BG levels reconcile and continue home medications DVT ppx Discharge Plan: Home Plan to discharge in: 24 Hours - Advance Directives Does patient have a Living Will: Yes Does patient have a Durable POA for Healthcare: Yes - Code Status/Comfort Care Code Status Assessed: Yes (full code ) Critical Care: No Time Spent Managing Pts Care (In Minutes): 70 <Al Tirado - Last Filed: 05/31/21 00:07> Date of Service: 05/30/21 Subjective: Agree with the HPI as above Physical Examination: Vitals: Afebrile vital signs are stable Physical exam: Cardiovascular: Within normal limits. Lungs: Within normal limits Abdomen: Within normal limits Neuro: Awake, alert, oriented to person place and time Assessment: 1. Syncope Plan: 1. Continue with current plan of care 2. Echo and carotid Doppler <Natalya Yang - Last Filed: 06/03/21 20:02>
[2021-05-31 00:29] VITALS: O2SAT 96
[2021-05-31] MEDS ORDERED: ONDANSETRON 4 MG/2 ML VIAL IV PRN (03:00)
[2021-05-31 03:56] LABS: Absolute Lymphocytes (CBC) 0.8 K/uL (0.7-4.9); Basophils % 0.4 % (0-1.3); Hematocrit 41.4 % (39.6-49.0); Lymphocytes % 6.8 % (15.3-44.8); MPV 7.8 fL (7.6-11.3); RBC Red Blood Cell Count 4.76 M/uL (4.33-5.43)
[2021-05-31 04:14] LABS: ALT/SGPT 26 U/L (12-78); AST/SGOT 15 U/L (15-37); Albumin 3.2 g/dL (3.4-5.0); Alkaline Phosphatase 52 U/L (45-117); BUN Blood Urea Nitrogen 27 mg/dL (7-18); Bicarbonate 27 mmol/L (21-32); Bilirubin Total 0.6 mg/dL (0.2-1.0); Glucose Level 138 mg/dL (74-106); HDL Cholesterol 46 mg/dL (40-60); LDL Cholesterol, Calculated 131 (<130); Magnesium 2.1 mg/dL (1.8-2.4); Phosphorus 3.2 mg/dL (2.5-4.9); Potassium 4.8 mmol/L (3.5-5.1); Sodium Level 141 mmol/L (136-145); Thyroid Stimulating Hormone 0.771 uIU/mL (0.360-3.740); Troponin I < 0.02 ng/mL (0.0-0.045)
[2021-05-31 04:57] LABS: Blood Morphology Comment NOT SEEN (NOT SEEN); Platelet Estimate ADEQ
[2021-05-31] MEDS: INSULIN -REGULAR HUMAN 50 UNIT/0.5 ML ML SQ SCH ×2 (07:30→11:30)
[2021-05-31] MEDS ORDERED: INFLUENZA VACCINE (for 6+ mo) 0.5 ML DOSE IMVAC ONE (08:00)
[2021-05-31 08:42] LABS: Urine Appearance CLEAR (Clear); Urine Bilirubin NEGATIVE (Negative); Urine Blood NEGATIVE (Negative); Urine Color YELLOW (Yellow); Urine Glucose NEGATIVE (Negative); Urine Microscopic Reflex NO UMIC; Urine Protein NEGATIVE (Negative); Urine Urobilinogen 0.2 mg/dL (0.2-1.0); Urine pH 7.5 (5.0-7.0)
[2021-05-31] MEDS ORDERED: ENOXAPARIN 40 MG/0.4 ML SQ SCH (09:00)
[2021-05-31] MEDS: NA CHLORIDE 0.9% 1,000 ML IV SCH (09:00)
--- NOTE | 2021-05-31 12:26 | RAD REPORT ---
EXAM DESCRIPTION: US - CP - 05/31/2021 12:00 pm CLINICAL HISTORY: syncope Headache, drowsiness COMPARISON: Head C Spine Mpr Wo Con dated 05/30/2021 TECHNIQUE: Real-time sonographic evaluation of both carotid systems was performed. Doppler interroga tion was performed with waveform tracing bilaterally. FINDINGS: Normal high resistance waveforms are noted in both external carotid arteries. The common c arotid arteries and internal carotid arteries show normal low resistance waveforms. Significant hard plaquing is present in both proximal internal carotid arteries, greater on the right . Based on NASCET criteria, proximal right internal carotid artery stenosis is estimated at 90%. Left -sided carotid stenosis is likely less than 50%. Antegrade flow seen in both vertebral arteries. IMPRESSION: 90% or greater stenosis suspected involving the proximal right internal carotid artery. Recommend follow-up MR angiography of the neck vessels for further evaluation.
--- NOTE | 2021-05-31 16:42 | P.DS ---
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 He was on his way to [place] and stopped to have a drink with a friend. He suddenly became flushed, his eyes glazed over and he started gasping for breath. He describes a sick feeling came over in. His ch est became tight and he felt very thirsty. This episode lasted for 3 minutes. EMS noted he was hypoxic and hypotensive. He was initially requiring 6 liters NC upon arrival. A similar episode happened one year ago but was more severe. That episode lasted for 15 minutes and he became very diaphoretic and hypotensive. He had a full workup done by cardiology, neurology and ENT at that time with no fin dings. 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 He takes meclizine and gabapentin for symptomatic relief. He says he has had ongoing vertigo, propioception and gait issues. He says he has to walk with intention but by lunch time he feels very weak. At one point, it was thought he had myasthenia gravis but this was ruled out. Denies dizziness. K 3.4, BUN 26, GFR 69, Glu 122. 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 Patient was found have stenosis of the right internal carotid artery. This was 90%. Patient will follow up as an outpatient with his district administrative assistant. At this time, patient is stable for discharge. Continue with anti-platelet therapy and statin therapy. Vital Signs/Physical Exam: Temp Pulse Resp BP Pulse Ox 97.8 F 70 18 119/56 L 98 05/31/21 12:00 05/31/21 12:00 05/31/21 12:00 05/31/21 12:00 05/31/21 12:00 General: Alert, In no apparent distress, Oriented x3 Laboratory Data at Discharge: WBC 12.30 K/uL (4.3-10.9) H D 05/31/21 03:38 Hgb 13.7 g/dL (13.6-17.9) 05/31/21 03:38 Hct 41.4 % (39.6-49.0) 05/31/21 03:38 Plt Count 210 K/uL (152-406) 05/31/21 03:38 PT 12.3 SECONDS (9.5-12.5) 05/30/21 19:09 INR 1.07 05/30/21 19:09 Sodium 141 mmol/L (136-145) 05/31/21 03:38 Potassium 4.8 mmol/L (3.5-5.1) 05/31/21 03:38 BUN 27 mg/dL (7-18) H 05/31/21 03:38 Creatinine 1.10 mg/dL (0.55-1.3) 05/31/21 03:38 Glucose 138 mg/dL (74-106) H 05/31/21 03:38 Phosphorus 3.2 mg/dL (2.5-4.9) 05/31/21 03:38 Magnesium 2.1 mg/dL (1.8-2.4) 05/31/21 03:38 Total Bilirubin 0.6 mg/dL (0.2-1.0) 05/31/21 03:38 AST 15 U/L (15-37) 05/31/21 03:38 ALT 26 U/L (12-78) 05/31/21 03:38 Alkaline Phosphatase 52 U/L (45-117) 05/31/21 03:38 Troponin I < 0.02 ng/mL (0.0-0.045) 05/31/21 03:38 Triglycerides 73 mg/dL (<150) 05/31/21 03:38 Cholesterol 192 mg/dL (<200) 05/31/21 03:38 HDL Cholesterol 46 mg/dL (40-60) 05/31/21 03:38 Cholesterol/HDL Ratio 4.17 05/31/21 03:38 Home Medications: Aspirin [Aspirin EC 325 MG] 325 mg PO DAILY #30 tablet. 05/31/21 Rosuvastatin [Crestor] 10 mg PO BEDTIME #30 tab 05/31/21 New Medications: Aspirin [Aspirin EC 325 MG] 325 mg PO DAILY #30 tablet. Rosuvastatin [Crestor] 10 mg PO BEDTIME #30 tab Physician Discharge Instructions: OK TO DC IV AND DC HOME FOLLOW-UP WITH PRIMARY CARE PROVIDER IN 1-2 WEEKS FOLLOW-UP WITH CARDIOLOGY IN 1-2 WEEKS RETURN TO THE ER IF symptoms worsen CALL or TEXT DR. DIETZ AT [phone] IF ANY QUESTIONS REGARDING HOSPITAL STAY. PLEASE CALL THE FLOOR AT [phone] IF ANY MEDICATION OR NURSING QUESTIONS. Diet: AHA Activity: Fall precautions Followup: [facility] [Primary Care Provider] - Nimesh Castano MD [ACTIVE - CAN ADMIT] - Time spent managing pt's care (in minutes): 35
[2021-05-31 17:13] VITALS: BP 130/66; TEMP 97.5
--- NOTE | 2021-05-31 17:16 | CON ---
Date of Consultation: 05/31/2021 Reason For Consultation: Syncope. History Of Present Illness: A 76-year-old male with history of coronary artery disease status post 4 -vessel bypass in the past, history of fall, vertigo, presented with a syncopal episode. He was havi ng dinner with a friend and he passed out. His blood pressure was reported to be low and this happen ed to him in the past before and was told that this could be related to low blood pressure. The jackie ent did not feel any palpitations. No chest pain. Most likely hypoxic at the event, but then recove red immediately after the event was over. Denies having any chest pain. He has a vehicle fare collector that he follows up with in consultation and gets cardiac workup on a regular basis. Past Medical History: As outlined above in HPI. Medications: Refer to reconciliation sheet for detailed list. Allergies: MORPHINE. Family History: No premature coronary artery disease or cancer. Social History: Does not smoke or drink. Does not use drugs. Review of Systems: All systems reviewed and they were negative except as mentioned in the HPI. Physical Examination: Vital Signs: Reviewed. Head and Neck: Pupils are equal, reactive to light. Intact eye movements. No JVD. No cervical lym phadenopathy. Neck is supple. Thyroid is not enlarged. Lungs: Clear to auscultation bilaterally. No rhonchi, wheezing, or crackles. No accessory muscle u se. Heart: Regular rate and rhythm. No extra sounds. Abdomen: Soft, nontender. Bowel sounds positive. No organomegaly. No masses or hernia. No rigidi ty or rebound. Extremities: No edema, clubbing, or cyanosis. Intact pulses. Skin: No rash noted. Neurologic: Alert, awake, oriented x3. No acute focal deficits appreciated. Investigations: CTA chest is negative. Carotid ultrasound suggestive of unilateral significant thompson tid stenosis. Troponin is negative. Assessment And Recommendations: 1.Syncope. This could be orthostatic and blood pressure related. Cardiac enzymes are negative. No chest pain. No cardiac abnormalities. EKG is normal. If echo is normal, the patient can be releas ed and follow up as an outpatient with his primary vehicle fare collector. 2.Carotid stenosis. Discussed with him the need to do a carotid angiogram and he would like to do t his with his primary vehicle fare collector. Asked him to follow up as soon as he is discharged. SR/MODL Voice ID: [id number] Report ID: [id number]
--- NOTE | 2021-06-01 10:42 | ECHO ---
HEIGHT: 5 ft 7 in WEIGHT: 180 lb 0 oz DATE OF STUDY: 05/31/[address]: Natalya Yang MD 2-DIMENSIONAL: YES M.MODE: YES DOPPLER: YES COLOR FLOW: YES TDS: NO PORTABLE: NO DEFINITY: NO BUBBLE STUDY: NO DIAGNOSIS: SYNCOPE CARDIAC HISTORY: CATHERIZATION: YES SURGERY: YES PROSTHETIC VALVE: NO PACEMAKER: NO MEASUREMENTS (cm) DIASTOLIC (NORMALS) SYSTOLIC (NORMALS) IVSd 1.0 (0.6-1.2) LA Diam 3.1 (1.9-4.0) LVEF 60-65% LVIDd 4.1 (3.5-5.7) LVIDs 3.1 (2.0-3.5) %FS 26% LVPWd 1.2 (0.6-1.2) Ao Diam 3.0 (2.0-3.7) 2 DIMENSIONAL ASSESSMENT: RIGHT ATRIUM: NORMAL LEFT ATRIUM: NORMAL RIGHT VENTRICLE: NORMAL LEFT VENTRICLE: NORMAL TRICUSPID VALVE: MILD TRICUSPID REGURGITATION MITRAL VALVE: MILD MITRAL REGURGITATION PULMONIC VALVE: MILD PULMONIC REGURGITATION AORTIC VALVE: NORMAL PERICARDIAL EFFUSION: NONE AORTIC ROOT: NORMAL LEFT VENTRICULAR WALL MOTION: NORMAL. DOPPLER/COLOR FLOW: SEE BELOW. COMMENTS: NORMAL LEFT VENTRICULAR EJECTION FRACTION 60-65% WITH NORMAL WALL MOTION. MILD MITRAL REGURGITATION. MILD TRIUCUSPID AND PULMONIC REGURGITATION. THICKENED AORTIC VALVE NO AORTIC STENOSIS. TECHNOLOGIST: CAMILA ST
--- NOTE | 2021-06-04 12:40 | CON ---
Reason For Consultation: Consultation called because of unsteady gait and falls. History Of Present Illness: Mr. Birmingham is a 76-year-old right-handed patient with coronary artery disease, status post 4-vessel bypass grafting in addition to repeated syncopal episodes and a t least 4-year history of gait instability with falls. He also has severe cord compression multiple levels that was treated by anterior and posterior diskectomy with the fusion studies throughout thoracic level T1. The reason for his admission this time is a syncopal episode, which occurre d while he was having a drink per friend as notes indicate the patient suddenly became flushed, eyes glazed over and appeared to be gasping for breath, had chest tightness and the event lasted about 3 m inutes. He was brought by emergency medical services and found to be severely hypotensive and hypoxi c, requiring IV fluids and did receive over 3 L of normal saline and has recovered. Blood pressures systolic as low as 100. Most recently after receiving fluids, blood pressure 130/66. He has recover ed from his initial syncopal episode and has not had a repeat since hospitalization. 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 However, this was not re cognized until about 4 years ago and imaging identified severe stenosis at multiple levels. He said initially he had an anterior discectomy and fusion and was just before COVID-19 hit in 2019 end of year. However, the postop period did not go well and reportedly there were more issues at higher c ervical level and he required repeat surgery. Surgery was delayed because of COVID and eventually brumfield d surgery earlier this year and has been in recovery. Imaging of the chest and neck today with CT sc an showed very extensive spinal fusion present from C3 to C6 with posterior hardware present from C2 to T2. There was no fracture of the hardware and no encroachment into the canal. However, the detai ls of the spinal canal were obscured by metal spray artifact. His head CT scan showed mild atrophy a nd chronic ischemic disease. Past Medical History: Episodes of vertigo and extremity weakness, incoordination. Past Surgical History: Coronary artery bypass grafting of 4 vessels, left knee replacement, and 3 ne ck surgeries 2 anterior and 1 posterior. Family History: Noncontributory. Social History: No tobacco use. Occasional alcohol use and caffeine use. No IV drug use. Allergies: MORPHINE. Medications: He is on Lovenox 40 mg subcutaneously daily for DVT prophylaxis, 10 mg IV ev chung 6 hours as needed for pressure control, melatonin 15 mg at bedtime. Review of Systems: As noted incoordination, unsteady gait, tendency to fall, sense of vertigo and fatigue by midday to e nd of day. Physical Examination: Vital Signs: Blood pressure , pulse 72, respiratory rate 18, temperature 97.5, and O2 satu ration 97%. Orthostatic, lying, sitting, and standing blood pressures were unremarkable t kurtis and is not positive for orthostatic hypotension. Weight 108 pounds, height 5 feet 7 inches, BMI 28.2. General: Mr. Birmingham is lying in bed. His is at bedside. He is in no acute distress. HEENT: He is normocephalic and atraumatic. Sclerae anicteric. Oropharynx is pink and moist. Neck: Supple. Chest: Clear. Heart: Regular rate and rhythm. Extremities: Show no edema or cyanosis. Neurologic: He is alert and oriented to situation, place, and person. He has no expressive or die maintenance tive aphasias. Cranial nerves 2 through 12 intact by exam. Motor examination in the upper and lower extremities, there is no focal weakness in the arms and legs. Sensory exam intact of lower extremit ies. Coordination, he has dysmetria of mild degree in the upper and lower extremities. Reflexes are brisk with positive Loving's bilaterally. Positive crossed adductors bilaterally with 3+ to 4+ in all extremities upper and lower. The patient ambulated independently without an assistive device wendy und 50 feet. His gait, however, was somewhat wide-based and mildly ataxic. Laboratory Studies: Complete blood count with differential is slightly abnormal now, initially was c ompletely normal. White blood cell count increased from 5 to 12.3, neutrophils from 53.4 to 86.7, an d INR 1.07. Chemistries are unremarkable except BUN slightly elevated at 27, creatinine normal at 1. 1, glucose ranged up to 138. Liver function studies are normal. LDL cholesterol 131, HDL 46. Urina lysis is unremarkable. COVID-19 test is negative. His carotid artery ultrasound shows 90% or greate r stenosis in the proximal right internal carotid artery. Assessment: 1.Mr. Birmingham is a 76-year-old patient with extensive surgery to the cervical spine due to the chroni c cord compression. 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 His carotid shows 90% stenosis of th e right and likely would benefit from angioplasty. 2.At this point, aspirin 81 mg daily. high dose statin nightly for his cholesterol. Tar get LDL less than 70, currently it is over 100. 3.He should have aggressive physical therapy continue with his balance, gait, coordination. 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 5.He was told how to perform the Silvia maneuver for vertigo, which may be a component related to his cervical surgeries and for compression. He has no evidence of an inner ear issue on scanning. BETTY/HOME Voice ID: [id number] Report ID: [id number]
== END 2021-05-31 18:07 | disposition home or self-care (01) ==
LOC: ER 18:39 → 2ND 22:25
PROVIDERS: ADMIT Hospitalist; ATTEND Hospitalist
DX: R55 Syncope and collapse (principal); R42 Dizziness and giddiness; I25.10 Atherosclerotic heart disease of native coronary artery without angina pectoris; R09.02 Hypoxemia; I65.29 Occlusion and stenosis of unspecified carotid artery; R29.2 Abnormal reflex; R26.0 Ataxic gait; Z96.652 Presence of left artificial knee joint; Z95.1 Presence of aortocoronary bypass graft; Z20.822 Contact with and (suspected) exposure to COVID-19
CPT/HCPCS: 93005; 93306; 85025 ×2; 80048; 36415; 83735 ×2; 84100; 85610; 80061; 82947 ×3; 80076; 84443; 81003; 84484 ×2; 84439; 80053; 83880; 70450; 72125; 71275; 71045; 93880; 97161; 94760 ×2; 99285; U0003; Q9967; J7030 ×2; J2405; G0378 ×2; J1650